=== PATIENT | female | born 1960 | race Two or more races ===

== ENCOUNTER 2019-08-26 20:34 | Emergency (ER) | payer OTHER ==
[~2019-08-26] VITALS: Ht 175.3 cm; Wt 85.3 kg
[~2019-08-26 20:34] MED LIST: COUMADIN5 MG PO; COZAAR50 MG PO; WELLBUTRIN SR150 MG PO
== END 2019-08-26 22:47 | disposition home or self-care (01) ==
LOC: ER 20:34
DX: R51 Headache (principal); D68.51 Activated protein C resistance

== ENCOUNTER 2023-06-17 10:05 | Emergency (ER) | payer OTHER ==
[~2023-06-17] VITALS: Ht 162.6 cm; Wt 83.5 kg
[2023-06-17 12:15] LABS: HEMATOCRIT 39.8 % (36.0-45.00); HEMOGLOBIN 13.6 g/dL (12.0-15.00); MEAN CELL VOLUME 93.2 fL (80.00-100.00); MEAN CORPUSCULAR HEMOGLOBIN 31.8 pg (27.00-32.0); MEAN CORPUSCULAR HGB CONC 34.2 g/dl (32.0-36.0); PLATELET COUNT 248 K/uL (150-450); RED BLOOD COUNT 4.27 M/uL (4.00-6.00); RED CELL DISTRIBUTION WIDTH 13.4 % (11.5-14.5)
[2023-06-17 12:36] LABS: CALCIUM 9.6 mg/dL (8.5-10.1); CREATININE SERUM 0.82 mg/dL (0.55-1.02); GFR 70.87; POTASSIUM 4.03 mEq/L (3.5-5.1)
== END 2023-06-17 15:13 | disposition home or self-care (01) ==
LOC: ER 10:06
PROVIDERS: General Practice
DX: I82.461 Acute embolism and thrombosis of right calf muscular vein (principal)